=== PATIENT | female | born 1975 | race American Indian/Alaskan Native ===

== ENCOUNTER 2017-12-05 11:17 | Emergency (ER) | payer SELFPAY ==
[2017-12-05] MEDS ORDERED: PERCOCET 5/325 PO ONE (15:31)
--- NOTE | 2017-12-05 15:33 | Emergency Department Report ---
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 Mike Machado in [place]. Patient just relocated to [place] recently. She has an appointment with [facility] next week. She is requesting pain medications MD Complaint: back pain Onset/Timin -: week(s) Similar Symptoms Previously: Yes Radiation: right leg Severity: severe Severity scale (0 -10): 10 Quality: aching Consistency: constant Improves With: none Worsens With: movement Context: other (tumor) Associated Symptoms: denies: confusion, weakness, chest pain, numbness, difficulty walking, cough, difficulty urinating, diaphoresis, incontinence, fever/chills, constipation, headaches, abdominal pain, loss of appetite, malaise , nausea/vomiting, rash, seizure, shortness of breath, syncope Treatments Prior to Arrival: prescription analgesics - Related Data Previous Rx's Medication Instructions Recorded Last Taken Type methylPREDNISolone [Medrol] 4 mg PO DAILY #1 tab.ds.pk 12/05/17 Unknown Rx Allergies Allergy/AdvReac Type Severity Reaction Status Date / Time No Known Allergies Allergy Unverified 12/05/17 12:03 ED Review of Systems ROS: Stated complaint: TUMOR PAIN Other details as noted in HPI Constitutional: denies: chills, fever Eyes: denies: eye pain, eye discharge, vision change ENT: denies: ear pain, throat pain Respiratory: denies: cough, shortness of breath, wheezing Cardiovascular: denies: chest pain, palpitations Endocrine: no symptoms reported Gastrointestinal: denies: abdominal pain, nausea, diarrhea Genitourinary: denies: urgency, dysuria, discharge Musculoskeletal: back pain. denies: joint swelling, arthralgia, myalgia Skin: denies: rash, lesions Neurological: denies: headache, weakness, paresthesias Psychiatric: denies: anxiety, depression Hematological/Lymphatic: denies: easy bleeding, easy bruising ED Past Medical Hx - Past Medical History Additional medical history: Tumor on L5 - Surgical History Past Surgical History?: No - Social History Smoking Status: Never Smoker Substance Use Type: None - Medications Home Medications: Home Medications Medication Instructions Recorded Confirmed Last Taken Type methylPREDNISolone [Medrol] 4 mg PO DAILY #1 tab.ds.pk 12/05/17 Unknown Rx ED Physical Exam - General Limitations: No Limitations General appearance: alert, in no apparent distress - Head Head exam: Present: atraumatic, normocephalic - Eye Eye exam: Present: normal appearance - Neck Neck exam: Present: normal inspection, full ROM. Absent: tenderness, meningismus, lymphadenopathy, thyromegaly - Respiratory Respiratory exam: Present: normal lung sounds bilaterally. Absent: respiratory distress, wheezes, rales, rhonchi, stridor, chest wall tenderness, accessory muscle use, decreased breath sounds, prolonged expiratory - Cardiovascular Cardiovascular Exam: Present: regular rate, normal rhythm, normal heart sounds. Absent: bradycardia, tachycardia, irregular rhythm, systolic murmur, diastolic murmur - Back Exam Back exam: Present: full ROM, tenderness (right lower back with palpation). Absent: CVA tenderness (R), CVA tenderness (L), muscle spasm, paraspinal tenderness, vertebral tenderness, rash noted - Neurological Exam Neurological exam: Present: alert, oriented X3, CN II-XII intact, normal gait, reflexes normal. Absent: motor sensory deficit - Psychiatric Psychiatric exam: Present: normal affect, normal mood - Skin Skin exam: Present: warm, dry, intact, normal color. Absent: rash ED Course Vital Signs 12/05/17 12/05/17 12:00 15:46 Temperature 98.2 F 98.1 F Pulse Rate 96 H 78 Respiratory 22 16 Rate Blood Pressure 134/93 Blood Pressure 119/85 [Right] O2 Sat by Pulse 98 100 Oximetry - Reevaluation(s) Reevaluation #2: 12/05/17 15:35 pain medication ordered ED Medical Decision Making - Lab Data Vital Signs 12/05/17 12:00 Temperature 98.2 F Pulse Rate 96 H Respiratory 22 Rate Blood Pressure 134/93 O2 Sat by Pulse 98 Oximetry Vital Signs 12/05/17 12/05/17 12:00 15:46 Temperature 98.2 F 98.1 F Pulse Rate 96 H 78 Respiratory 22 16 Rate Blood Pressure 134/93 Blood Pressure 119/85 [Right] O2 Sat by Pulse 98 100 Oximetry - Medical Decision Making During the course of ED, pain medication was ordered prior to discharge. Patient was sent home with a prescription for Medrol dose pack and instructed to follow up with the scheduled PCP as directed. She verbalized understanding - Differential Diagnosis Chronic Back Pain Critical care attestation.: If time is entered above; I have spent that time in minutes in the direct care of this critically ill patient, excluding procedure time. ED Disposition Clinical Impression: Back pain Qualifiers: Back pain location: low back pain Chronicity: acute Back pain laterality: right Sciatica presence: with sciatica Sciatica laterality: sciatica of right side Qualified Code(s): M54.41 - Lumbago with sciatica, right side Disposition: TO HOME OR SELFCARE Is pt being admited?: No Does the pt Need Aspirin: No Condition: Stable Instructions: Chronic Back Pain (ED) Additional Instructions: Take medication as directed. No drinking or driving while taking medication Prescriptions: methylPREDNISolone [Medrol] 4 mg PO DAILY #1 tab.ds.pk Referrals: PRIMARY CARE, [Primary Care Provider] - 3-5 Days Time of Disposition: 15:38
[2017-12-05 15:47] VITALS: BP 119/85
== END 2017-12-05 15:46 | disposition home or self-care (01) ==
LOC: ED 11:17
DX: M54.41 Lumbago with sciatica, right side (principal)
CPT/HCPCS: 99282